=== PATIENT | male | born 1990 | race African-American/Black ===

== ENCOUNTER 2021-12-06 11:54 | Emergency (ER) | payer SELFPAY ==
[~2021-12-06] VITALS: Ht 190.5 cm; Wt 94.0 kg
[2021-12-06 12:16] VITALS: BP 125/90
[2021-12-06 12:49] LABS: BASOPHILS % 0.6 % (0.0-2.0); EOSINOPHILS % 0.8 % (0.0-5.0); HEMATOCRIT. 41.9 % (42.0-52.0); HEMOGLOBIN. 14.3 g/dL (14.0-18.0); LYMPHOCYTES % 26.8 % (20.0-50.0); MEAN CORPUSCULAR HEMOGLOBIN 31.2 pg (28.0-32.0); MEAN CORPUSCULAR VOLUME 91.1 fL (80.0-94.0); MEAN PLATELET VOLUME 7.2 fl (7.4-10.4); NEUTROPHILS % 63.8 % (40.0-76.0); PLATELET 221 x1000/uL (130-400); RED CELL DISTRIBUTION WIDTH 14.2 % (11.6-14.6)
[2021-12-06 12:52] LABS: CLARITY URINE CLEAR (CLEAR); COLOR URINE DARK YELLOW (YELLOW); KETONES URINE TRACE (NEGATIVE); LEUKOCYTE ESTERASE URINE NEGATIVE (NEGATIVE); NITRITE URINE NEGATIVE (NEGATIVE); OCCULT BLOOD URINE NEGATIVE (NEGATIVE); PH URINE 6.5 (4.5-8.0); PROTEIN URINE TRACE (NEGATIVE); SPECIFIC GRAVITY URINE 1.033 (1.005-1.030)
[2021-12-06 13:04] LABS: CHLORIDE 111 mEq/L (98-107)
[2021-12-07 08:12] LABS: HIV SCREEN 4G Non Reactive (Non Reactive)
[2021-12-09 04:07] LABS: NEISSERIA GONORRHOEAE NAA Negative (Negative)
== END 2021-12-06 13:21 | disposition left against medical advice (07) ==
LOC: ER 11:54
DX: Z11.3 Encounter for screening for infections with a predominantly sexual mode of transmission (principal); R10.32 Left lower quadrant pain; F91.8 Other conduct disorders
CPT/HCPCS: 36415; 80053; 81003; 85025; 86592; 87389; 87491; 87591; 99283

== ENCOUNTER 2021-12-27 18:19 | Emergency (ER) | payer MEDICAID ==
[~2021-12-27] VITALS: Ht 190.5 cm; Wt 87.4 kg
[2021-12-27 18:55] VITALS: BP 135/84
[2021-12-27] MEDS ORDERED: KETOROLAC 60MG/2ML VIAL IM STA (20:21)
== END 2021-12-28 00:10 | disposition left against medical advice (07) ==
LOC: ER 18:38
DX: R10.32 Left lower quadrant pain (principal)
CPT/HCPCS: 76700; 93005; 99284